=== PATIENT | female | born 1995 | race Two or more races ===

== ENCOUNTER 2018-12-23 22:30 | Emergency (ER) | payer BC ==
[~2018-12-23] VITALS: Ht 172.7 cm; Wt 59.9 kg
[2018-12-23 23:18] VITALS: BP 105/65
[2018-12-24] MEDS ORDERED: HYDROcodone/APAP 5/325MG 1 TAB TABLET PO ONE (00:45)
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
[2018-12-24] MEDS ORDERED: HYDR-3164 PO (00:47)
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
== END 2018-12-24 01:45 | disposition home or self-care (01) ==
LOC: ER 12-24 00:15
DX: S82.52XA Displaced fracture of medial malleolus of left tibia, initial encounter for closed fracture (principal); V43.52XA Car driver injured in collision with other type car in traffic accident, initial encounter; Y93.89 Activity, other specified; Y92.410 Unspecified street and highway as the place of occurrence of the external cause; Y99.8 Other external cause status
CPT/HCPCS: 29515; 73610; 99284